=== PATIENT | female | born 1950 | race Caucasian/White ===

== ENCOUNTER 2017-05-01 12:11 | Emergency (ER) | payer MEDICARE, BC ==
[2017-05-01] MEDS ORDERED: predniSONE 20 MG TAB ONE (12:33)
== END 2017-05-01 12:43 | disposition home or self-care (01) ==
LOC: BURERS 12:11
DX: M06.9 Rheumatoid arthritis, unspecified (principal); M19.90 Unspecified osteoarthritis, unspecified site; J45.909 Unspecified asthma, uncomplicated; Z85.038 Personal history of other malignant neoplasm of large intestine; Z92.21 Personal history of antineoplastic chemotherapy
CPT/HCPCS: 99283; J7506